=== PATIENT | male | born 1955 | race Caucasian/White ===

== ENCOUNTER 2016-11-12 10:26 | Emergency (ER) | payer OTHER ==
[2016-11-12] MEDS ORDERED: Lidocaine 2% with EPINEPHrine 1:100,000 20 ML MDV INFILT ONE (10:27)
[2016-11-12 11:23] VITALS: BP 137/89
--- NOTE | 2016-11-16 11:57 | ER ---
DATE SEEN: 11/12/2016 TIME SEEN: The patient was seen at 1030 hours. HISTORY OF PRESENT ILLNESS: Neville is a 61-year-old man, who was getting out of his pickup today and he lost his balance, he fell forward. "I am not as young as I used to be." Had trauma to his right brow. No loss of consciousness. Denies neck pain. Denies headache presently, but states "I think I will have a headache eventually." He has mild left shoulder ache. His tetanus is up to date 2-3 years ago. The patient works for [employer]. MEDICATIONS: He takes: 1. Losartan/hydrochlorothiazide 100/25. 2. Prazosin 2 mg daily. 3. Silodosin 8 mg daily (alpha-1 yobany for prostatism). 4. Crestor 20 mg daily. He had used different statin agents; it was Atorvastatin was discontinued and he is on Crestor. PAST MEDICAL HISTORY: Hypertension. Nonsmoker. No hypothyroidism. No diabetes. No other serious injuries. PAST SURGICAL HISTORY: No previous surgeries. REVIEW OF SYSTEMS: Negative except for noted above. PHYSICAL EXAMINATION: VITAL SIGNS: Blood pressure 138/82, heart rate 87, respirations 18, oxygen saturation 98%, temperature is 36.6 degrees centigrade. CONSTITUTIONAL: The patient has a 4-cm laceration, right medial, superior, anterior, frontal regions that extends laterally to the midline in oblique fashion. No compromised sensation. There is small amount of blood noted. HEENT: There are superficial abrasions in his nose. Also, there is mild swelling of nose. Small amount of blood in the nose. Intranasal exam does not demonstrate any fracture or deviation of bones. EOMs normal. Eyegrounds normal appearance. No hemorrhages or exudates or AV nicking. Hearing is good. No compromised facial sensation. Muscles of facial expression are normal. NECK: Nontender. No anterior or posterior neck discomfort. No tracheal tug. Pharynx without abnormality. Gag in place. Uvula midline. Tongue is midline. Tongue strength is normal. LUNGS: Clear to auscultation without rales, rhonchi, or wheezes. HEART: S1, S2. No irregular rate or rhythm. No S3, no S4. ABDOMEN: Soft. No guarding. No abdominal discomfort. No cervical, thoracic, or lumbar spine discomfort. NEUROLOGIC: Deep tendon reflexes in upper and lower extremities 1+ normal. Cranial nerves 2 through 12 intact. Oriented x3. Gait intact. Romberg negative. No past pointing. No pronator drift. No decreased strength in upper or lower muscles on testing. DIAGNOSIS/ASSESSMENT: A 4-cm laceration in the mid right frontal region. Transects dermis, but does not involve the frontalis muscle or periosteum. PROCEDURE: The patient's wound was prepped and cleansed vigorously, and then injected with lidocaine with epinephrine 2% and then closed with 8 stitches of interrupted 4-0 Ethilon. The patient tolerated the procedure well. PLAN: The patient to use bacitracin, apply it twice a day. Follow up with doctor in 7 days to have the sutures removed. Because of the age and the depth of the laceration, I chose to wait at least 7 days as opposed to 5 days. Use Tylenol 1000 mg and ibuprofen 600 mg together every 6 hours for pain and discomfort. Gradually increase activity as tolerated. OTHER DIAGNOSIS: Prostatism. Use silodosin for BPH. Tetanus up to date. Hypertension treated with Prazosin. /[id number] JESS/WILLARD
== END 2016-11-12 11:32 | disposition home or self-care (01) ==
LOC: FB.ED 10:26
DX: S01.81XA Laceration without foreign body of other part of head, initial encounter (principal); S00.31XA Abrasion of nose, initial encounter; Z79.899 Other long term (current) drug therapy; W19.XXXA Unspecified fall, initial encounter
CPT/HCPCS: 12013; 99283; A4217